=== PATIENT | female | born 2000 | race Two or more races ===

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

== ENCOUNTER 2018-01-22 19:17 | Inpatient (IN) | payer MEDICAID, OTHER ==
[~2018-01-22] VITALS: Ht 175.3 cm; Wt 46.1 kg
[2018-01-22] MEDS ORDERED: SODIUM CHLORIDE 0.9% 1,000ML IVBOLUS ONE (19:30)
[2018-01-22 19:49] LABS: BASOPHILS # (AUTO) 0.04 x10^3/uL (0-0.3); BASOPHILS % (AUTO) 1 % (0-1); EOSINOPHILS # (AUTO) 0.29 x10^3/uL (0-0.8); EOSINOPHILS % (AUTO) 5 % (1-7); LYMPHOCYTES # (AUTO) 1.94 x10^3/uL (1-6.1); LYMPHOCYTES % (AUTO) 36 % (22-44); MD NO; MEAN CORPUSCULAR HEMOGLOBIN 32.3 pg (27.0-34.8); MEAN CORPUSCULAR HGB CONC 33.8 g/dL (32.4-35.8); MEAN CORPUSCULAR VOLUME 95.5 fL (80-100); MONOCYTES # (AUTO) 0.41 x10^3/uL (0-1.4); MONOCYTES % (AUTO) 8 % (2-9); NEUTROPHILS # (AUTO) 2.65 x10^3/uL (1.8-8.0); NEUTROPHILS % (AUTO) 50 % (42-75); PLATELET COUNT 224 x10^3/uL (130-400); RED BLOOD COUNT 4.37 x10^6/uL (3.82-5.3); RED CELL DISTRIBUTION WIDTH 14.4 % (9.6-15.2)
[2018-01-22 20:02] LABS: ALBUMIN 4.2 g/dL (3.4-5.0); ANION GAP 8 mmol/L (5-15); CALCIUM 8.7 mg/dL (8.5-10.1); CHLORIDE 111 mmol/L (98-107)
[2018-01-22 20:06] LABS: ACETAMINOPHEN 76 mcg/mL (10-30); ALANINE AMINOTRANSFERASE 24 U/L (12-78); ALKALINE PHOSPHATASE 66 U/L (45-117); BILIRUBIN,TOTAL 0.6 mg/dL (0.2-1.0); CREATININE 0.73 mg/dL (0.55-1.02); SALICYLATE LEVEL 3.7 mg/dL (2.8-20.0); TOTAL PROTEIN 7.5 g/dL (6.4-8.2)
[2018-01-22] MEDS ORDERED: ACET-1600 PO (20:27)
[2018-01-22 20:53] LABS: MICROSCOPIC NOT IND
[2018-01-22 20:56] LABS: CULTURE INDICATED? NO
[2018-01-22 21:04] LABS: AMPHETAMINE SCREEN, URINE Negative (Negative); BARBITURATE SCREEN, URINE Negative (Negative); BENZODIAZEPINE SCREEN, URINE Negative (Negative); CANNABINOID SCREEN, URINE Positive (Negative); COCAINE SCREEN, URINE Negative (Negative); METHADONE SCREEN, URINE Negative (Negative); OPIATE SCREEN, URINE Negative (Negative)
[2018-01-22] MEDS ORDERED: ACETYLCYSTEINE IV ONE (22:00)
[2018-01-22] MEDS ORDERED: DEXTROSE 5% IV ONE (22:00)
[2018-01-22] MEDS ORDERED: METOCLOPRAMIDE 5 MG/ML, 2ML IVPush ONE (22:30)
[2018-01-22 22:34] LABS: INTERNATIONAL NORMALIZED RATIO 1.08 (0.93-1.1); PROTHROMBIN TIME 11.1 Seconds (9.6-11.5)
[2018-01-22] MEDS ORDERED: SODIUM CHLORIDE 0.9% 1,000 ML IV ONE (23:16)
[2018-01-22] MEDS ORDERED: MORPHINE SULFATE 4 MG/ML, 1ML IVPush PRN (23:30)
[2018-01-22] MEDS ORDERED: ONDANSETRON 2MG/ML, 2ML IVPush PRN (23:30)
[2018-01-22] MEDS ORDERED: MORPHINE SULFATE 4 MG/ML, 1ML ONE (23:31)
[2018-01-22] MEDS ORDERED: SODIUM CHLORIDE 0.9% 1,000 ML IV SCH (23:53)
[2018-01-23] MEDS ORDERED: ONDANSETRON 2MG/ML, 2ML IVPush PRN
[2018-01-23] MEDS ORDERED: METOCLOPRAMIDE 5 MG/ML, 2ML IVPush PRN
[2018-01-23 00:42] VITALS: BP 125/85
[2018-01-23] MEDS ORDERED: PROCHLORPERAZINE 5 MG/ML, 2ML IVPush PRN (01:30)
[2018-01-23 01:53] VITALS: BP 128/83
[2018-01-23] MEDS ORDERED: ACETYLCYSTEINE IV ONE ×2 (04:30)
[2018-01-23] MEDS ORDERED: DEXTROSE 5% IV ONE ×2 (04:30)
[2018-01-23 05:32] LABS: CHLORIDE 110 mmol/L (98-107)
[2018-01-23 05:43] LABS: BASOPHILS # (AUTO) 0.02 x10^3/uL (0-0.3); BASOPHILS % (AUTO) 0 % (0-1); EOSINOPHILS % (AUTO) 0 % (1-7); LYMPHOCYTES # (AUTO) 0.62 x10^3/uL (1-6.1); LYMPHOCYTES % (AUTO) 7 % (22-44); MD NO; MEAN CORPUSCULAR HEMOGLOBIN 32.3 pg (27.0-34.8); MEAN CORPUSCULAR HGB CONC 33.9 g/dL (32.4-35.8); MEAN CORPUSCULAR VOLUME 95.3 fL (80-100); MEAN PLATELET VOLUME 8.8 fL (7.4-10.4); MONOCYTES % (AUTO) 3 % (2-9); NEUTROPHILS # (AUTO) 8.58 x10^3/uL (1.8-8.0); NEUTROPHILS % (AUTO) 90 % (42-75); PLATELET COUNT 205 x10^3/uL (130-400); RED BLOOD COUNT 4.07 x10^6/uL (3.82-5.3)
[2018-01-23 05:48] LABS: ACETAMINOPHEN < 2 mcg/mL (10-30); ALANINE AMINOTRANSFERASE 27 U/L (12-78); ALBUMIN 3.8 g/dL (3.4-5.0); ALKALINE PHOSPHATASE 56 U/L (45-117); ANION GAP 12 mmol/L (5-15); BILIRUBIN,TOTAL 0.9 mg/dL (0.2-1.0); CALCIUM 8.2 mg/dL (8.5-10.1); CREATININE 0.53 mg/dL (0.55-1.02); TOTAL PROTEIN 6.9 g/dL (6.4-8.2)
[2018-01-23 07:51] VITALS: BP 99/60
== END 2018-01-23 10:37 | disposition left against medical advice (07) | DRG 918 ==
LOC: ED 21:12 → EDIP 23:16 → 4NOR 01-23 00:30 → UNDODISIN 01-23 10:34
PROVIDERS: ADMIT Hospitalist; ATTEND Hospitalist
DX: T39.1X1A Poisoning by 4-Aminophenol derivatives, accidental (unintentional), initial encounter (principal); F20.9 Schizophrenia, unspecified; R17 Unspecified jaundice; J45.909 Unspecified asthma, uncomplicated; F31.9 Bipolar disorder, unspecified; F12.90 Cannabis use, unspecified, uncomplicated; Z53.21 Procedure and treatment not carried out due to patient leaving prior to being seen by health care provider; Z88.8 Allergy status to other drugs, medicaments and biological substances; Z88.0 Allergy status to penicillin; Y92.89 Other specified places as the place of occurrence of the external cause
CPT/HCPCS: 36415; 76700; 80053; 80307; 80329; 81003; 83690; 84703; 85025; 85610; 96361; 96365; 96366; 96375; J0132; J2405; J7060; J7070; G0480; J0780; J2765; J7030

== ENCOUNTER 2018-02-25 09:03 | Emergency (ER) | payer SELFPAY ==
[~2018-02-25] VITALS: Ht 172.7 cm; Wt 44.2 kg
[~2018-02-25 09:03] MED LIST changes: +ACET-1600 PO
[2018-02-25 09:52] LABS: BASOPHILS # (AUTO) 0.02 x10^3/uL (0-0.3); BASOPHILS % (AUTO) 0 % (0-1); EOSINOPHILS # (AUTO) 0.22 x10^3/uL (0-0.8); EOSINOPHILS % (AUTO) 5 % (1-7); LYMPHOCYTES # (AUTO) 1.17 x10^3/uL (1-6.1); LYMPHOCYTES % (AUTO) 25 % (22-44); MD NO; MEAN CORPUSCULAR HEMOGLOBIN 33.5 pg (27.0-34.8); MEAN CORPUSCULAR HGB CONC 34.7 g/dL (32.4-35.8); MEAN CORPUSCULAR VOLUME 96.7 fL (80-100); MEAN PLATELET VOLUME 8.6 fL (7.4-10.4); MONOCYTES # (AUTO) 0.33 x10^3/uL (0-1.4); MONOCYTES % (AUTO) 7 % (2-9); NEUTROPHILS # (AUTO) 2.89 x10^3/uL (1.8-8.0); NEUTROPHILS % (AUTO) 63 % (42-75); PLATELET COUNT 213 x10^3/uL (130-400); RED BLOOD COUNT 4.24 x10^6/uL (3.82-5.3); RED CELL DISTRIBUTION WIDTH 13.1 % (9.6-15.2)
[2018-02-25] MEDS ORDERED: ONDANSETRON ODT 4 MG PO ONE (10:00)
[2018-02-25 10:04] LABS: ANION GAP 8 mmol/L (5-15); CALCIUM 8.6 mg/dL (8.5-10.1); CHLORIDE 112 mmol/L (98-107)
[2018-02-25 10:09] LABS: ALANINE AMINOTRANSFERASE 25 U/L (12-78); ALKALINE PHOSPHATASE 68 U/L (45-117); BILIRUBIN,TOTAL 1.3 mg/dL (0.2-1.0); CREATININE 0.74 mg/dL (0.55-1.02); TOTAL PROTEIN 7.2 g/dL (6.4-8.2)
[2018-02-25] MEDS ORDERED: ONDANSETRON ODT 4 MG ONE (10:36)
[2018-02-25 10:40] VITALS: BP 115/79
== END 2018-02-25 11:47 | disposition home or self-care (01) ==
LOC: ED 10:14
DX: O26.891 Other specified pregnancy related conditions, first trimester (principal); R10.33 Periumbilical pain; G40.909 Epilepsy, unspecified, not intractable, without status epilepticus; F31.9 Bipolar disorder, unspecified; F41.9 Anxiety disorder, unspecified
CPT/HCPCS: 36415; 76801; 80053; 83690; 84702; 84703; 85025; 99285; Q0162

== ENCOUNTER 2018-03-16 10:21 | Emergency (ER) | payer SELFPAY ==
[~2018-03-16] VITALS: Ht 172.7 cm; Wt 43.0 kg
[2018-03-16] MEDS ORDERED: ONDANSETRON ODT 4 MG PO ONE (11:00)
[2018-03-16 11:17] LABS: BASOPHILS # (AUTO) 0.04 x10^3/uL (0-0.3); BASOPHILS % (AUTO) 1 % (0-1); EOSINOPHILS # (AUTO) 0.22 x10^3/uL (0-0.8); EOSINOPHILS % (AUTO) 5 % (1-7); LYMPHOCYTES # (AUTO) 1.34 x10^3/uL (1-6.1); LYMPHOCYTES % (AUTO) 28 % (22-44); MD NO; MEAN CORPUSCULAR HEMOGLOBIN 32.6 pg (27.0-34.8); MEAN CORPUSCULAR HGB CONC 34.1 g/dL (32.4-35.8); MEAN CORPUSCULAR VOLUME 95.7 fL (80-100); MEAN PLATELET VOLUME 8.4 fL (7.4-10.4); MONOCYTES # (AUTO) 0.34 x10^3/uL (0-1.4); MONOCYTES % (AUTO) 7 % (2-9); NEUTROPHILS # (AUTO) 2.81 x10^3/uL (1.8-8.0); NEUTROPHILS % (AUTO) 59 % (42-75); PLATELET COUNT 244 x10^3/uL (130-400); RED BLOOD COUNT 4.23 x10^6/uL (3.82-5.3); RED CELL DISTRIBUTION WIDTH 13.2 % (9.6-15.2)
[2018-03-16 11:29] LABS: ALANINE AMINOTRANSFERASE 47 U/L (12-78); ALBUMIN 3.8 g/dL (3.4-5.0); ANION GAP 8 mmol/L (5-15); CALCIUM 8.7 mg/dL (8.5-10.1); CHLORIDE 110 mmol/L (98-107); CREATININE 0.64 mg/dL (0.55-1.02)
[2018-03-16 11:45] LABS: ALKALINE PHOSPHATASE 70 U/L (45-117); BILIRUBIN,TOTAL 0.8 mg/dL (0.2-1.0); TOTAL PROTEIN 7.3 g/dL (6.4-8.2)
[2018-03-16] MEDS ORDERED: PREN1TAB60 PO (12:40)
[2018-03-16] MEDS ORDERED: ONDANSETRON ODT 4 MG ONE (13:02)
[2018-03-16 13:08] VITALS: BP 122/82
== END 2018-03-16 13:38 | disposition home or self-care (01) ==
LOC: ED 13:32
DX: O26.891 Other specified pregnancy related conditions, first trimester (principal); O99.341 Other mental disorders complicating pregnancy, first trimester; Z3A.08 8 weeks gestation of pregnancy; F31.9 Bipolar disorder, unspecified; F41.9 Anxiety disorder, unspecified
CPT/HCPCS: 36415; 76801; 80053; 84702; 85025; 86901; 99285; Q0162

== ENCOUNTER 2018-11-13 11:04 | Emergency (ER) | payer SELFPAY ==
[~2018-11-13] VITALS: Ht 170.2 cm; Wt 50.0 kg
[~2018-11-13 11:04] MED LIST changes: +PREN1TAB60 PO
[2018-11-13] MEDS ORDERED: ONDANSETRON ODT 4 MG ONE (11:29)
[2018-11-13] MEDS ORDERED: SODIUM CHLORIDE FLUSH 10ML SYR IVF ONE (11:30)
[2018-11-13] MEDS ORDERED: ONDANSETRON ODT 4 MG PO ONE (11:30)
[2018-11-13 11:46] LABS: BASOPHILS # (AUTO) 0.02 x10^3/uL (0-0.3); BASOPHILS % (AUTO) 0 % (0-1); EOSINOPHILS % (AUTO) 3 % (1-7); LYMPHOCYTES # (AUTO) 0.48 x10^3/uL (1-6.1); LYMPHOCYTES % (AUTO) 8 % (22-44); MD NO; MEAN CORPUSCULAR HEMOGLOBIN 33.9 pg (27.0-34.8); MEAN CORPUSCULAR HGB CONC 34.4 g/dL (32.4-35.8); MEAN CORPUSCULAR VOLUME 98.5 fL (80-100); MEAN PLATELET VOLUME 7.7 fL (7.4-10.4); MONOCYTES # (AUTO) 0.29 x10^3/uL (0-1.4); MONOCYTES % (AUTO) 5 % (2-9); NEUTROPHILS # (AUTO) 5.39 x10^3/uL (1.8-8.0); NEUTROPHILS % (AUTO) 85 % (42-75); PLATELET COUNT 318 x10^3/uL (130-400); RED CELL DISTRIBUTION WIDTH 12.7 % (9.6-15.2)
[2018-11-13 11:54] LABS: ALBUMIN 2.8 g/dL (3.4-5.0); ANION GAP 7 mmol/L (5-15); CALCIUM 9.5 mg/dL (8.5-10.1); CHLORIDE 114 mmol/L (98-107)
[2018-11-13 11:58] LABS: ALANINE AMINOTRANSFERASE 28 U/L (12-78); ALKALINE PHOSPHATASE 204 U/L (45-117); BILIRUBIN,TOTAL 0.5 mg/dL (0.2-1.0); CREATININE 0.62 mg/dL (0.55-1.02); TOTAL PROTEIN 7.6 g/dL (6.4-8.2)
[2018-11-13] MEDS ORDERED: OMNIPAQUE 350 MG/ML, 100ML BOTTLE ONE (12:28)
--- NOTE | 2018-11-13 12:51 | NUR ---
LUNCH BREAK NOTE: PT RESTING IN [facility] IN [facility]. UA COLLECTED AND SENT TO THE LAB.
[2018-11-13 13:04] LABS: MICROSCOPIC NOT IND
[2018-11-13 13:11] LABS: CULTURE INDICATED? NO
[2018-11-13 13:45] VITALS: BP 106/64
== END 2018-11-13 13:56 | disposition home or self-care (01) ==
LOC: ED 12:56
DX: O90.89 Other complications of the puerperium, not elsewhere classified (principal); R10.9 Unspecified abdominal pain; J45.909 Unspecified asthma, uncomplicated; F31.9 Bipolar disorder, unspecified; Z88.1 Allergy status to other antibiotic agents; Z88.0 Allergy status to penicillin
CPT/HCPCS: 36415; 74177; 80053; 81003; 83690; 85025; 99284; Q0162; Q9967

== ENCOUNTER 2019-09-05 16:42 | Emergency (ER) | payer MEDICAID ==
[~2019-09-05] VITALS: Ht 172.7 cm; Wt 46.2 kg
[2019-09-05 17:17] VITALS: BP 128/77
[2019-09-05] MEDS ORDERED: BUPIVACAINE/PF 0.5% ONE (17:53)
[2019-09-05] MEDS ORDERED: LIDOCAINE-MPF 1%, 5ML ONE (17:53)
[2019-09-05] MEDS ORDERED: LIDOCAINE 1%, 10ML INFIL ONE (18:00)
[2019-09-05] MEDS ORDERED: BUPIVACAINE 0.25% INFIL ONE (18:00)
--- NOTE | 2019-09-05 18:04 | NUR ---
DC EDUCATION PROVIDED, PT DEMONSTRATES UNDERSTANDING. PT AMBULATED STEADILY TO DC WITH RN AND FAMILY. FAMILY TO TRANSPORT PT HOME.
== END 2019-09-05 18:14 | disposition home or self-care (01) ==
LOC: ED 18:05
DX: K02.9 Dental caries, unspecified (principal); K08.89 Other specified disorders of teeth and supporting structures; F17.210 Nicotine dependence, cigarettes, uncomplicated; F11.10 Opioid abuse, uncomplicated; Z72.9 Problem related to lifestyle, unspecified
CPT/HCPCS: 64402; 99284

== ENCOUNTER 2019-12-26 13:46 | Emergency (ER) | payer MEDICAID ==
[~2019-12-26] VITALS: Ht 172.7 cm; Wt 54.6 kg
[2019-12-26 13:55] VITALS: BP 115/78
[2019-12-26 14:40] LABS: BASOPHILS # (AUTO) 0.03 x10^3/uL (0-0.1); BASOPHILS % (AUTO) 1 % (0-1); EOSINOPHILS # (AUTO) 0.14 x10^3/uL (0-0.4); EOSINOPHILS % (AUTO) 3 % (1-7); LYMPHOCYTES # (AUTO) 1.61 x10^3/uL (1-3.4); LYMPHOCYTES % (AUTO) 30 % (22-44); MD NO; MEAN CORPUSCULAR HEMOGLOBIN 32.2 pg (27.0-34.8); MEAN CORPUSCULAR HGB CONC 33.9 g/dL (32.4-35.8); MONOCYTES # (AUTO) 0.42 x10^3/uL (0.2-0.8); MONOCYTES % (AUTO) 8 % (2-9); NEUTROPHILS # (AUTO) 3.21 x10^3/uL (1.8-6.8); NEUTROPHILS % (AUTO) 59 % (42-75); PLATELET COUNT 271 x10^3/uL (130-400); RED BLOOD COUNT 4.37 x10^6/uL (3.82-5.3); RED CELL DISTRIBUTION WIDTH 13.3 % (9.6-15.2)
--- NOTE | 2019-12-26 15:20 | NUR ---
PT HAS CO ABDOMINAL PAIN SINCE LAST NIGHT. BOTH LOWER QUADRENTS AND RADIATES TO RECTUM AT TIMES. DENIES N/V/D. DENIES PAIN OR TROUBLE VOIDING. NO SOB OR CP. UA CUP GIVEN.
[2019-12-26 15:49] LABS: ALANINE AMINOTRANSFERASE 26 U/L (12-78); ALBUMIN 3.9 g/dL (3.4-5.0); ANION GAP 8 mmol/L (5-15); CALCIUM 8.8 mg/dL (8.5-10.1); CHLORIDE 109 mmol/L (98-107); CREATININE 0.75 mg/dL (0.55-1.02)
[2019-12-26 15:51] LABS: ALKALINE PHOSPHATASE 103 U/L (45-117); BILIRUBIN,TOTAL 0.7 mg/dL (0.2-1.0); TOTAL PROTEIN 7.7 g/dL (6.4-8.2)
--- NOTE | 2019-12-26 15:54 | NUR ---
UA SENT. PT IN IMAGING
[2019-12-26 16:15] LABS: MICROSCOPIC INDICATED
[2019-12-26 16:24] LABS: CULTURE INDICATED? YES
--- NOTE | 2019-12-26 17:14 | NUR ---
Patient/Caregiver given discharge instructions and they have confirmed that they understand the instructions. Patient ambulatory with steady gait.
== END 2019-12-26 17:25 | disposition home or self-care (01) ==
LOC: ED 17:15
DX: R10.84 Generalized abdominal pain (principal); R10.30 Lower abdominal pain, unspecified; R11.0 Nausea; J45.909 Unspecified asthma, uncomplicated; G40.909 Epilepsy, unspecified, not intractable, without status epilepticus; Z88.0 Allergy status to penicillin; Z88.9 Allergy status to unspecified drugs, medicaments and biological substances
CPT/HCPCS: 36415; 76830; 80053; 81001; 83690; 84703; 85025; 87077; 87086; 87186; 99284

== ENCOUNTER 2020-03-01 09:21 | Emergency (ER) | payer MEDICAID ==
[~2020-03-01] VITALS: Ht 172.7 cm; Wt 51.7 kg
[2020-03-01] MEDS ORDERED: FLUO10CA13 PO (09:48)
[2020-03-01] MEDS ORDERED: HYDR-2995 PO (09:48)
[2020-03-01] MEDS ORDERED: PROP10TA51 PO (09:48)
[2020-03-01] MEDS ORDERED: TRAZ-175 PO (09:48)
[2020-03-01] MEDS ORDERED: MAALOX/HYOSCYAMINE/LIDOCAINE 45 ML BTL ONE (09:52)
[2020-03-01] MEDS ORDERED: FAMOTIDINE 20 MG/2 ML ONE (09:52)
[2020-03-01] MEDS ORDERED: ONDANSETRON 2MG/ML, 2ML ONE (09:56)
[2020-03-01] MEDS ORDERED: MAALOX/HYOSCYAMINE/LIDOCAINE 45 ML BTL PO ONE (10:00)
[2020-03-01] MEDS ORDERED: FAMOTIDINE 20 MG/2 ML IV ONE (10:00)
[2020-03-01] MEDS ORDERED: SODIUM CHLORIDE FLUSH 10ML SYR IVF ONE (10:00)
[2020-03-01] MEDS ORDERED: ONDANSETRON 2MG/ML, 2ML IVPush ONE (10:00)
[2020-03-01 10:20] LABS: BASOPHILS # (AUTO) 0.03 x10^3/uL (0-0.1); BASOPHILS % (AUTO) 1 % (0-1); EOSINOPHILS # (AUTO) 0.25 x10^3/uL (0-0.4); EOSINOPHILS % (AUTO) 5 % (1-7); LYMPHOCYTES # (AUTO) 1.43 x10^3/uL (1-3.4); LYMPHOCYTES % (AUTO) 30 % (22-44); MD NO; MEAN CORPUSCULAR HEMOGLOBIN 32.4 pg (27.0-34.8); MEAN CORPUSCULAR HGB CONC 33.5 g/dL (32.4-35.8); MEAN CORPUSCULAR VOLUME 96.8 fL (80-100); MEAN PLATELET VOLUME 8.3 fL (7.4-10.4); MONOCYTES # (AUTO) 0.42 x10^3/uL (0.2-0.8); MONOCYTES % (AUTO) 9 % (2-9); NEUTROPHILS # (AUTO) 2.69 x10^3/uL (1.8-6.8); NEUTROPHILS % (AUTO) 56 % (42-75); PLATELET COUNT 262 x10^3/uL (130-400); RED BLOOD COUNT 4.34 x10^6/uL (3.82-5.3); RED CELL DISTRIBUTION WIDTH 13.9 % (9.6-15.2)
[2020-03-01 10:22] LABS: MICROSCOPIC NOT IND
[2020-03-01 10:29] LABS: CHLORIDE 110 mmol/L (98-107)
[2020-03-01 10:30] LABS: CULTURE INDICATED? NO
[2020-03-01 10:33] LABS: ALANINE AMINOTRANSFERASE 50 U/L (12-78); ANION GAP 4 mmol/L (5-15); CREATININE 0.72 mg/dL (0.55-1.02)
[2020-03-01 10:36] LABS: ALKALINE PHOSPHATASE 138 U/L (45-117); BILIRUBIN,TOTAL 0.8 mg/dL (0.2-1.0); TOTAL PROTEIN 7.9 g/dL (6.4-8.2)
[2020-03-01 10:37] VITALS: BP 103/54
== END 2020-03-01 11:20 | disposition home or self-care (01) ==
LOC: ED 09:47
DX: K80.50 Calculus of bile duct without cholangitis or cholecystitis without obstruction (principal); K80.20 Calculus of gallbladder without cholecystitis without obstruction; R10.13 Epigastric pain; R10.11 Right upper quadrant pain; R94.31 Abnormal electrocardiogram [ECG] [EKG]; J45.909 Unspecified asthma, uncomplicated; Z87.891 Personal history of nicotine dependence
CPT/HCPCS: 36415; 76700; 80053; 81003; 83690; 84703; 85025; 93005; 96374; 96375; 99285; J2405; J3490

== ENCOUNTER 2020-03-09 16:30 | Day surgery (SDC) | payer MEDICAID ==
[~2020-03-09] VITALS: Ht 172.7 cm; Wt 51.3 kg
[~2020-03-09 16:30] MED LIST changes: +FLUO10CA13 PO; +FLUO20TA25 PO; +HYDR-2995 PO; +HYDR50TA99 PO; +PROP10TA51 PO; +PROPRANOL PO; +TRAZ-175 PO; +TRAZ50TA66 PO; +[UNRECOGNIZED DRUG - OTHER] PO; +olanzapine PO
[2020-03-09] MEDS ORDERED: CHLORHEXIDINE 15 ML UDC MM STA (16:43)
[2020-03-09] MEDS ORDERED: LACTATED RINGERS 1,000 ML IV ONE (16:43)
[2020-03-09] MEDS ORDERED: CHLORHEXIDINE 15 ML UDC ONE (16:45)
[2020-03-09 17:05] LABS: HCG UR SG 1.032 (1.003-1.030)
[2020-03-09 17:31] LABS: ALANINE AMINOTRANSFERASE 47 U/L (12-78); ANION GAP 8 mmol/L (5-15); CALCIUM 9.1 mg/dL (8.5-10.1); CHLORIDE 110 mmol/L (98-107); CREATININE 0.69 mg/dL (0.55-1.02)
[2020-03-09 17:34] LABS: ALKALINE PHOSPHATASE 141 U/L (45-117); BILIRUBIN,TOTAL 0.7 mg/dL (0.2-1.0)
[2020-03-09] MEDS ORDERED: FENTANYL PF 100 MCG/2ML ONE ×2 (17:48→20:13)
[2020-03-09] MEDS ORDERED: MIDAZOLAM 1 MG/ML, 2ML ONE (17:48)
[2020-03-09] MEDS ORDERED: BUPIVACAINE/PF-EPI 0.5% 1:200K ONE (18:23)
[2020-03-09] MEDS ORDERED: PROMETHAZINE 25 MG/ML, 1ML IVPush PRN (18:30)
[2020-03-09] MEDS ORDERED: LABETALOL 5MG/ML, 20ML IV PRN (18:30)
[2020-03-09] MEDS ORDERED: ALBUTEROL SULFATE 2.5 MG/3 ML NPPB PRN (18:30)
[2020-03-09] MEDS ORDERED: OXYcodone 5 MG/5 ML ORAL.SOL UDC PO PRN (18:30)
[2020-03-09] MEDS ORDERED: MIDAZOLAM 1 MG/ML, 2ML IV PRN (18:30)
[2020-03-09] MEDS ORDERED: MEPERIDINE/PF 25MG/0.5ML IVPush PRN (18:30)
[2020-03-09] MEDS ORDERED: ACETAMINOPHEN 325 MG TABLET PO PRN (18:30)
[2020-03-09] MEDS ORDERED: DIPHENHYDRAMINE 50 MG/ML, 1ML IVPush PRN (18:30)
[2020-03-09] MEDS ORDERED: SUGAMMADEX 200 MG/2 ML IVPush ONE (19:04)
[2020-03-09] MEDS ORDERED: CEFOTETAN 1 GM ONE (19:04)
[2020-03-09] MEDS ORDERED: KETOROLAC 30 MG/1 ML ONE (19:04)
[2020-03-09] MEDS ORDERED: SUCCINYLCHOLINE 20 MG/ML, 10ML ONE (19:44)
[2020-03-09] MEDS ORDERED: DEXAMETHASONE 4 MG/ML, 1ML ONE (19:44)
[2020-03-09] MEDS ORDERED: ROCURONIUM 10MG/ML,5ML ONE (19:44)
[2020-03-09] MEDS ORDERED: CEFAZOLIN 1,000 MG ONE (19:44)
[2020-03-09] MEDS ORDERED: GLYCOPYRROLATE 0.2MG/1ML, 5ML ONE (19:44)
[2020-03-09] MEDS ORDERED: LIDOCAINE-MPF 2% ,5ML ONE (19:44)
[2020-03-09] MEDS ORDERED: NEOSTIGMINE 1 MG/ML, 10ML ONE (19:44)
[2020-03-09] MEDS ORDERED: PROPOFOL 10 MG/ML, 20ML ONE (19:44)
[2020-03-09] MEDS ORDERED: ONDANSETRON 2MG/ML, 2ML ONE ×2 (19:44→20:09)
[2020-03-09] MEDS ORDERED: LACTATED RINGERS 1,000 ML IV SCH (20:01)
[2020-03-09] MEDS: FENTANYL PF 100 MCG/2ML IV PRN ×2 (20:10→20:21)
[2020-03-09] MEDS ORDERED: OXYcodone 5 MG/5 ML ORAL.SOL UDC ONE (20:13)
[2020-03-09] MEDS ORDERED: LORazepam 2 MG/ML, 1ML ONE (20:13)
[2020-03-09] MEDS: HYDROmorphone 1 MG/ML, 1ML INJ IVPush PRN ×3 (20:25→20:50)
[2020-03-09] MEDS ORDERED: HYDROmorphone 1 MG/ML, 1ML INJ ONE (20:28)
[2020-03-09] MEDS ORDERED: ONDANSETRON 2MG/ML, 2ML IVPush PRN (20:30)
[2020-03-09] MEDS ORDERED: PROMETHAZINE 25 MG/ML, 1ML IM PRN (20:30)
[2020-03-09] MEDS ORDERED: LORazepam 2 MG/ML, 1ML IVPush PRN (20:30)
[2020-03-09 21:19] VITALS: BP 112/77
[2020-03-09] MEDS ORDERED: ONDA4TAB7 PO (21:50)
[2020-03-09] MEDS ORDERED: OXYC-306 PO (21:50)
[2020-03-09] MEDS ORDERED: MORPHINE SULFATE 4 MG/ML, 1ML ONE ×2 (22:31→22:57)
[2020-03-09] MEDS: morphine SULFATE 10 MG/ML, 1ML IVPush PRN ×2 (22:33→22:59)
== END 2020-03-09 23:30 | disposition home or self-care (01) ==
LOC: OR 16:30 → 3WST 21:10 → OR 23:30
PROVIDERS: ATTEND Surgery
DX: K81.1 Chronic cholecystitis (principal); Z11.59 Encounter for screening for other viral diseases; K82.8 Other specified diseases of gallbladder; F32.9 Major depressive disorder, single episode, unspecified; J45.909 Unspecified asthma, uncomplicated; I10 Essential (primary) hypertension; Z79.891 Long term (current) use of opiate analgesic; Z79.899 Other long term (current) drug therapy; Z88.8 Allergy status to other drugs, medicaments and biological substances; Z83.3 Family history of diabetes mellitus
CPT/HCPCS: 36415; 47562; 80053; 81025; 88304; J0330; J0690; J1100; J1170; J1885; J2060; J2250; J2270; J2405; J2704; J2710; J3010; J3490; J7120; U0001; G0378

== ENCOUNTER 2020-03-30 08:03 | Emergency (ER) | payer MEDICAID ==
[~2020-03-30] VITALS: Ht 172.7 cm; Wt 53.9 kg
[~2020-03-30 08:03] MED LIST changes: +ONDA4TAB7 PO; +OXYC-306 PO
[2020-03-30] MEDS ORDERED: HYDROcodone/APAP 5/325 TABLET ONE (08:29)
[2020-03-30] MEDS ORDERED: HYDROcodone/APAP 5/325 TABLET PO ONE (08:30)
--- NOTE | 2020-03-30 08:34 | NUR ---
PT AMBULATED TO BR WITH STEADY GAIT. UA SAMPLE COLLECTED AND SENT TO LAB
[2020-03-30 08:46] LABS: BASOPHILS # (AUTO) 0.06 x10^3/uL (0-0.1); BASOPHILS % (AUTO) 1 % (0-1); EOSINOPHILS # (AUTO) 0.64 x10^3/uL (0-0.4); EOSINOPHILS % (AUTO) 10 % (1-7); HCG UR SG 1.022 (1.003-1.030); LYMPHOCYTES # (AUTO) 1.73 x10^3/uL (1-3.4); LYMPHOCYTES % (AUTO) 27 % (22-44); MD NO; MEAN CORPUSCULAR HEMOGLOBIN 31.9 pg (27.0-34.8); MEAN CORPUSCULAR HGB CONC 33.3 g/dL (32.4-35.8); MEAN CORPUSCULAR VOLUME 95.7 fL (80-100); MEAN PLATELET VOLUME 8.3 fL (7.4-10.4); MICROSCOPIC AUTO; MONOCYTES # (AUTO) 0.54 x10^3/uL (0.2-0.8); MONOCYTES % (AUTO) 8 % (2-9); NEUTROPHILS # (AUTO) 3.49 x10^3/uL (1.8-6.8); NEUTROPHILS % (AUTO) 54 % (42-75); PLATELET COUNT 292 x10^3/uL (130-400); RED BLOOD COUNT 3.98 x10^6/uL (3.82-5.3); RED CELL DISTRIBUTION WIDTH 13.4 % (9.6-15.2)
[2020-03-30 08:58] LABS: ALANINE AMINOTRANSFERASE 39 U/L (12-78); ALBUMIN 3.2 g/dL (3.4-5.0); ANION GAP 9 mmol/L (5-15); CALCIUM 8.9 mg/dL (8.5-10.1); CHLORIDE 115 mmol/L (98-107); CREATININE 0.77 mg/dL (0.55-1.02)
[2020-03-30 09:00] LABS: ALKALINE PHOSPHATASE 168 U/L (45-117); BILIRUBIN,TOTAL 0.2 mg/dL (0.2-1.0); TOTAL PROTEIN 6.7 g/dL (6.4-8.2)
--- NOTE | 2020-03-30 09:53 | NUR ---
PT RESTING ON GURNEY, APPEARS COMFORTABLE AT THIS TIME. AWAITING US, CLARAS
[2020-03-30 11:09] VITALS: BP 117/81
--- NOTE | 2020-03-30 11:10 | NUR ---
Task rn: with reassessment. Patient reports pain only slightly improved to 7/10 Reports nausea improved Vss on nibp/pox Updated on estimated poc
== END 2020-03-30 12:08 | disposition home or self-care (01) ==
LOC: ED 08:50
DX: R10.9 Unspecified abdominal pain (principal); R11.2 Nausea with vomiting, unspecified; R19.7 Diarrhea, unspecified; J45.909 Unspecified asthma, uncomplicated; Z87.891 Personal history of nicotine dependence; Z90.49 Acquired absence of other specified parts of digestive tract
CPT/HCPCS: 36415; 74021; 76700; 80053; 81001; 81025; 83690; 85025; 87086; 99285

== ENCOUNTER 2020-04-03 09:48 | Emergency (ER) | payer MEDICAID ==
[~2020-04-03] VITALS: Ht 172.7 cm; Wt 51.7 kg
--- NOTE | 2020-04-03 10:09 | NUR ---
EPIC AMBULATORY ANALYSTS BED MOVED IN TO PT'S ROOM. PT STATES POSSIBLE EXPOSURE TO MULTIPLE STD'S, INCLUDING HIV. PT HERE FOR EXAM AND STD CHECK. PT'S SISTER AT BEDSIDE. AWAITING ERMD ASSESSMENT.
[2020-04-03] MEDS ORDERED: AZITHROMYCIN 500 MG TABLET PO ONE (10:30)
[2020-04-03] MEDS ORDERED: CEFTRIAXONE 1,000 MG IM ONE (10:30)
[2020-04-03] MEDS ORDERED: KETOROLAC 30 MG/1 ML IM ONE (10:30)
--- NOTE | 2020-04-03 10:30 | NUR ---
ERPA-C AT BEDSIDE FOR PELVIC EXAM. SAMPLE COLLECTED, WALKED TO LAB. PT AWAITING U/S. PT AWARE OF POC. PT'S SISTER AT BEDSIDE. CONT TO MONITOR.
[2020-04-03] MEDS ORDERED: KETOROLAC 30 MG/1 ML ONE (10:39)
[2020-04-03] MEDS ORDERED: AZITHROMYCIN 250 MG TABLET ONE (10:39)
[2020-04-03] MEDS ORDERED: CEFTRIAXONE 1,000 MG ONE (10:39)
[2020-04-03 10:47] LABS: BASOPHILS # (AUTO) 0.04 x10^3/uL (0-0.1); BASOPHILS % (AUTO) 1 % (0-1); EOSINOPHILS # (AUTO) 0.42 x10^3/uL (0-0.4); EOSINOPHILS % (AUTO) 8 % (1-7); LYMPHOCYTES % (AUTO) 23 % (22-44); MD NO; MEAN CORPUSCULAR HEMOGLOBIN 32.1 pg (27.0-34.8); MEAN CORPUSCULAR HGB CONC 33.6 g/dL (32.4-35.8); MEAN CORPUSCULAR VOLUME 95.4 fL (80-100); MEAN PLATELET VOLUME 8.6 fL (7.4-10.4); MONOCYTES # (AUTO) 0.45 x10^3/uL (0.2-0.8); MONOCYTES % (AUTO) 8 % (2-9); NEUTROPHILS # (AUTO) 3.34 x10^3/uL (1.8-6.8); NEUTROPHILS % (AUTO) 60 % (42-75); PLATELET COUNT 265 x10^3/uL (130-400); RED BLOOD COUNT 4.16 x10^6/uL (3.82-5.3); RED CELL DISTRIBUTION WIDTH 13.5 % (9.6-15.2)
--- NOTE | 2020-04-03 10:48 | NUR ---
PT TO U/S. WILL MEDICATED WHEN PT RETURN FROM U/S.
[2020-04-03 10:55] LABS: CLUE CELLS PRESENT (NONE SEEN); WET PREP WBCS MODERATE (FEW)
[2020-04-03 10:57] LABS: MICROSCOPIC INDICATED
--- NOTE | 2020-04-03 11:42 | NUR ---
PT STATES PAIN DECREASED, MEDICATIONS EFFECIVE. ER PA-C AT BEDSIDE FOR REASSESMENT, PT TO ER D/C. WILL D/C WHEN PAPERWORK AVAILABLE.
--- NOTE | 2020-04-03 11:57 | NUR ---
PT D/C'D PER ORDERS. PT VERBALIZED UNDERSTANDING OF D/C ORDERS. PT HAS ALL OWN BELONGINGS UPON D/C.
[2020-04-03 11:59] VITALS: BP 141/76
== END 2020-04-03 12:01 | disposition home or self-care (01) ==
LOC: ED 11:30
DX: N76.0 Acute vaginitis (principal); R10.2 Pelvic and perineal pain; Z87.891 Personal history of nicotine dependence
CPT/HCPCS: 36415; 76830; 81001; 84703; 85025; 87086; 87210; 87491; 87591; 87808; 96372; 99284; J0696; J1885

== ENCOUNTER 2020-04-22 19:25 | Emergency (ER) | payer MEDICAID ==
[~2020-04-22] VITALS: Ht 172.7 cm; Wt 50.1 kg
[2020-04-22 19:31] VITALS: BP 121/82
[2020-04-22] MEDS ORDERED: LORazepam 2 MG/ML, 1ML ONE (19:58)
[2020-04-22] MEDS ORDERED: ONDANSETRON 2MG/ML, 2ML ONE (19:58)
[2020-04-22] MEDS ORDERED: LORazepam 2 MG/ML, 1ML IVPush ONE (20:00)
[2020-04-22] MEDS ORDERED: SODIUM CHLORIDE FLUSH 10ML SYR IVF ONE (20:00)
[2020-04-22] MEDS ORDERED: ONDANSETRON 2MG/ML, 2ML IVPush ONE (20:00)
[2020-04-22 20:17] LABS: HCG UR SG 1.036 (1.003-1.030)
[2020-04-22 20:18] LABS: MICROSCOPIC INDICATED
--- NOTE | 2020-04-22 20:33 | NUR ---
ALL RESULTS ARE BACK AT THIS TIME. CHART UP FOR RECHECK.
--- NOTE | 2020-04-22 20:41 | NUR ---
MD AT BEDSIDE TO UPDATE PT ON POC.
== END 2020-04-22 21:14 | disposition home or self-care (01) ==
LOC: ED 21:11
DX: F41.9 Anxiety disorder, unspecified (principal); R11.10 Vomiting, unspecified; R06.02 Shortness of breath; R94.31 Abnormal electrocardiogram [ECG] [EKG]; J45.909 Unspecified asthma, uncomplicated; Z90.49 Acquired absence of other specified parts of digestive tract; Z87.891 Personal history of nicotine dependence
CPT/HCPCS: 81001; 81025; 87086; 93005; 96374; 96375; 99284; J2060; J2405

== ENCOUNTER 2020-05-11 05:11 | Emergency (ER) | payer MEDICAID ==
[~2020-05-11] VITALS: Ht 172.7 cm; Wt 49.0 kg
--- NOTE | 2020-05-11 05:24 | NUR ---
PT STATES SHE CAME IN TODAY FOR SEVERE ABDOMINAL PAIN AND VOMITING. PT STATES SHE IS THROWING UP EVERY 20 MINUTES, STILL HAVING GAS AND BM. LAST PERIOD WAS FEBRUARY, TYPICALLY GETS ONE EVERY 3 MONTHS. STATES SHE HAD THIS PAIN BEFORE WITH HER LAST MISCARRIAGE. ALSO STATES SHE FEELS FLANK PAIN AND PRESSURE WHEN TRYING TO PEE. PT IS SITTING UP IN GURNEY, CRYING, GIVEN WARM BLANKETS FOR COMFORT. PT PLACED ON SPO2/BP MONITORING. WCTM. WAITING FOR MD [place]
--- NOTE | 2020-05-11 05:26 | NUR ---
UA WALKED TO LAB.
[2020-05-11] MEDS ORDERED: OXYcodone/APAP 5/325MG TABLET PO ONE (05:30)
[2020-05-11] MEDS ORDERED: ONDANSETRON ODT 8 MG PO ONE (05:30)
[2020-05-11 05:43] LABS: HCG UR SG 1.028 (1.003-1.030); MICROSCOPIC NOT IND
[2020-05-11] MEDS ORDERED: ONDANSETRON ODT 8 MG ONE (05:54)
[2020-05-11] MEDS ORDERED: OXYcodone/APAP 5/325MG TABLET ONE (05:54)
--- NOTE | 2020-05-11 05:57 | NUR ---
PT MEDICATED PER MAR FOR NAUSEA AND ABDOMINAL PAIN. NO CHANGES IN CONDITION AT THIS TIME. WCTM. NAD. WAITING FOR LAB RESULTS.
--- NOTE | 2020-05-11 06:26 | NUR ---
PT RESTING IN [facility], LAB AT BS, NAUSEA AND PAIN IS DECREASED ACCORDING TO PT, APPEARS MORE COMFORTABLE, GIVEN ADDITIONAL WARM BLANKETS. DENIES ADDITIONAL NEEDS AT THIS TIME. NAD. WCTM. WAITING FOR CBC/CMP RESULTS.
[2020-05-11 06:40] LABS: BASOPHILS # (AUTO) 0.03 x10^3/uL (0-0.1); BASOPHILS % (AUTO) 0 % (0-1); EOSINOPHILS # (AUTO) 0.21 x10^3/uL (0-0.4); EOSINOPHILS % (AUTO) 3 % (1-7); LYMPHOCYTES # (AUTO) 1.65 x10^3/uL (1-3.4); LYMPHOCYTES % (AUTO) 22 % (22-44); MD NO; MEAN CORPUSCULAR HGB CONC 32.3 g/dL (32.4-35.8); MEAN CORPUSCULAR VOLUME 96.1 fL (80-100); MEAN PLATELET VOLUME 8.9 fL (7.4-10.4); MONOCYTES # (AUTO) 0.49 x10^3/uL (0.2-0.8); MONOCYTES % (AUTO) 7 % (2-9); NEUTROPHILS # (AUTO) 5.09 x10^3/uL (1.8-6.8); NEUTROPHILS % (AUTO) 68 % (42-75); PLATELET COUNT 205 x10^3/uL (130-400); RED BLOOD COUNT 4.08 x10^6/uL (3.82-5.3)
[2020-05-11 06:50] LABS: ALANINE AMINOTRANSFERASE 19 U/L (12-78); ANION GAP 9 mmol/L (5-15); CALCIUM 9.1 mg/dL (8.5-10.1); CHLORIDE 113 mmol/L (98-107); CREATININE 0.76 mg/dL (0.55-1.02)
--- NOTE | 2020-05-11 06:53 | NUR ---
BEDSIDE REPORT TO THEA SEN. PT CARE TRANSFERRED AT THIS TIME.
[2020-05-11 06:54] LABS: ALKALINE PHOSPHATASE 102 U/L (45-117); BILIRUBIN,TOTAL 0.4 mg/dL (0.2-1.0); TOTAL PROTEIN 7.3 g/dL (6.4-8.2)
[2020-05-11] MEDS ORDERED: KETOROLAC 30 MG/1 ML IM ONE (07:30)
[2020-05-11] MEDS ORDERED: PROMETHAZINE 25 MG/ML, 1ML IM ONE (07:30)
[2020-05-11] MEDS ORDERED: PROMETHAZINE 25 MG/ML, 1ML ONE (07:33)
[2020-05-11] MEDS ORDERED: KETOROLAC 60 MG/2 ML ONE (07:33)
[2020-05-11 07:37] VITALS: BP 122/76
--- NOTE | 2020-05-11 07:44 | NUR ---
pt placed on pelvic bed, water mangle tender cart wheeled into room. went in to medicate pt per emar, pt stated she can not do shots. pt then stated she wants to self discharge. erp aware, has gone in to speak with pt.
== END 2020-05-11 08:05 | disposition home or self-care (01) ==
LOC: ED 06:02
DX: R10.32 Left lower quadrant pain (principal); R10.31 Right lower quadrant pain; R50.9 Fever, unspecified; R11.2 Nausea with vomiting, unspecified; R10.2 Pelvic and perineal pain; R30.9 Painful micturition, unspecified; F41.9 Anxiety disorder, unspecified; I10 Essential (primary) hypertension; Z90.49 Acquired absence of other specified parts of digestive tract
CPT/HCPCS: 36415; 80053; 81003; 81025; 84703; 85025; 99283; Q0162

== ENCOUNTER 2020-06-01 02:42 | Emergency (ER) | payer MEDICAID ==
[~2020-06-01] VITALS: Ht 172.7 cm; Wt 40.8 kg
[2020-06-01 02:46] VITALS: BP 121/70
== END 2020-06-01 04:29 ==
LOC: ED 03:42
DX: G89.11 Acute pain due to trauma (principal); M25.532 Pain in left wrist; I10 Essential (primary) hypertension; Z87.891 Personal history of nicotine dependence; W18.30XA Fall on same level, unspecified, initial encounter; Y93.89 Activity, other specified; Y92.89 Other specified places as the place of occurrence of the external cause; Y99.8 Other external cause status
CPT/HCPCS: 29125; 99283

== ENCOUNTER 2020-06-21 19:37 | Emergency (ER) | payer MEDICAID ==
[~2020-06-21] VITALS: Ht 172.7 cm; Wt 46.0 kg
--- NOTE | 2020-06-21 19:55 | NUR ---
THIS IS A 20Y F BIB EMS FROM HOME FOR SZ. EMS STS SHE HAD 3-4 SZ EN ROUTE TO ER. 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 PT HAS HX OF SZ AND HAS NOT HAD MEDICATIONS FOR THIS IN ABOUT [address] IN [address] CONFECTIONERY MAKER AND PT A/O 4 UPON ARRIVAL. PT CONNECTED TO ALL MONITORING VSS, NADN, SZ PRECAUTIONS IN PLACE.
[2020-06-21] MEDS ORDERED: LORazepam 2 MG/ML, 1ML IVPush ONE ×3 (20:30→23:00)
[2020-06-21] MEDS ORDERED: LEVETIRACETAM 1,000 MG in SODIUM CHLORIDE 0.9% 100 ML IV ONE (20:30)
[2020-06-21] MEDS ORDERED: LORazepam 2 MG/ML, 1ML ONE ×2 (20:32→22:14)
[2020-06-21 20:34] VITALS: BP 102/70
--- NOTE | 2020-06-21 20:49 | NUR ---
PT MEDICATED PER DEC 21 RIGHTS VERIFIED. PT TOLERATING WELL NADN
[2020-06-21 21:25] LABS: BASOPHILS # (AUTO) 0.04 x10^3/uL (0-0.1); BASOPHILS % (AUTO) 1 % (0-1); EOSINOPHILS % (AUTO) 4 % (1-7); LYMPHOCYTES # (AUTO) 1.02 x10^3/uL (1-3.4); LYMPHOCYTES % (AUTO) 19 % (22-44); MD NO; MEAN CORPUSCULAR HGB CONC 32.9 g/dL (32.4-35.8); MEAN CORPUSCULAR VOLUME 94.2 fL (80-100); MEAN PLATELET VOLUME 9.3 fL (7.4-10.4); MONOCYTES # (AUTO) 0.35 x10^3/uL (0.2-0.8); MONOCYTES % (AUTO) 6 % (2-9); NEUTROPHILS # (AUTO) 3.78 x10^3/uL (1.8-6.8); NEUTROPHILS % (AUTO) 70 % (42-75); PLATELET COUNT 211 x10^3/uL (130-400); RED BLOOD COUNT 4.13 x10^6/uL (3.82-5.3); RED CELL DISTRIBUTION WIDTH 14.1 % (9.6-15.2)
[2020-06-21 21:37] LABS: ALBUMIN 3.7 g/dL (3.4-5.0); ANION GAP 5 mmol/L (5-15); CALCIUM 9.2 mg/dL (8.5-10.1); CHLORIDE 113 mmol/L (98-107)
--- NOTE | 2020-06-21 21:47 | NUR ---
PT RESTING ON [facility] BAJWA
--- NOTE | 2020-06-21 22:18 | NUR ---
PT HAD ANOTHER SZ LASTING APPROX 2 MINS MAINTAINED AIRWAY THROUGHOUT, PT DOES NOT RECALL EVENTS AT THIS TIME
--- NOTE | 2020-06-21 22:54 | NUR ---
PT HAD ANOTHER SZ LASTING APPROX 2.5 MINS. PT NOW AWAKE AND ASKING QUESTIONS DOES NOT RECALL EVENTS.
--- NOTE | 2020-06-21 23:31 | NUR ---
PT INSISTING UPON LEAVING TONIGHT AND THAT SHE HAS TO GET HOME TO CARE FOR HER CHILDREN. PT EDUCATED ON RISKS OF LEAVING AMA, STS SHE UNDERSTANDS RISKS UP TO AND INCLUDING . PIV DC PRIOR TO PT LEAVING
== END 2020-06-21 23:27 | disposition left against medical advice (07) ==
LOC: ED 22:28
DX: R56.9 Unspecified convulsions (principal); R55 Syncope and collapse; I10 Essential (primary) hypertension; Z72.9 Problem related to lifestyle, unspecified
CPT/HCPCS: 36415; 80048; 82040; 84703; 85025; 93005; 96365; 96375; 96376; 99284; J1953; J2060

== ENCOUNTER 2020-07-06 02:49 | Emergency (ER) | payer MEDICAID ==
[~2020-07-06] VITALS: Ht 172.7 cm; Wt 47.0 kg
--- NOTE | 2020-07-06 03:12 | NUR ---
TASK RN: milan smith for seizure like activity. per ems, no postictal period. pt state she is able to feel touch during seizures activity. pt with a hx of seizures and compliant with medications. 2.5 mg versed given IM by MARCO ANTONIO DACOSTA.
[2020-07-06 03:18] LABS: BASOPHILS # (AUTO) 0.03 x10^3/uL (0-0.1); BASOPHILS % (AUTO) 0 % (0-1); EOSINOPHILS # (AUTO) 0.23 x10^3/uL (0-0.4); EOSINOPHILS % (AUTO) 3 % (1-7); LYMPHOCYTES # (AUTO) 1.64 x10^3/uL (1-3.4); LYMPHOCYTES % (AUTO) 23 % (22-44); MD NO; MEAN CORPUSCULAR HEMOGLOBIN 30.6 pg (27.0-34.8); MEAN CORPUSCULAR HGB CONC 32.6 g/dL (32.4-35.8); MEAN CORPUSCULAR VOLUME 94.1 fL (80-100); MEAN PLATELET VOLUME 8.4 fL (7.4-10.4); MONOCYTES # (AUTO) 0.42 x10^3/uL (0.2-0.8); MONOCYTES % (AUTO) 6 % (2-9); NEUTROPHILS # (AUTO) 4.78 x10^3/uL (1.8-6.8); NEUTROPHILS % (AUTO) 67 % (42-75); PLATELET COUNT 239 x10^3/uL (130-400); RED BLOOD COUNT 3.86 x10^6/uL (3.82-5.3); RED CELL DISTRIBUTION WIDTH 14.4 % (9.6-15.2)
[2020-07-06 03:28] LABS: ALANINE AMINOTRANSFERASE 20 U/L (12-78); ALBUMIN 3.4 g/dL (3.4-5.0); ANION GAP 6 mmol/L (5-15); CALCIUM 8.6 mg/dL (8.5-10.1); CHLORIDE 114 mmol/L (98-107)
[2020-07-06 03:33] LABS: ALKALINE PHOSPHATASE 95 U/L (45-117); BILIRUBIN,TOTAL 0.5 mg/dL (0.2-1.0); CREATININE 0.62 mg/dL (0.55-1.02); TOTAL PROTEIN 6.6 g/dL (6.4-8.2)
[2020-07-06 04:24] VITALS: BP 94/50
[2020-07-06] MEDS ORDERED: DIPHENHYDRAMINE 50 MG/ML, 1ML ONE (05:54)
[2020-07-06] MEDS ORDERED: ACETAMINOPHEN 500 MG TABLET ONE (05:54)
[2020-07-06] MEDS ORDERED: PROCHLORPERAZINE 5 MG/ML, 2ML ONE (05:54)
== END 2020-07-06 05:57 | disposition home or self-care (01) ==
LOC: ED 03:24
DX: G40.919 Epilepsy, unspecified, intractable, without status epilepticus (principal); I10 Essential (primary) hypertension; J45.909 Unspecified asthma, uncomplicated; Z87.891 Personal history of nicotine dependence; Z90.49 Acquired absence of other specified parts of digestive tract
CPT/HCPCS: 36415; 80053; 84703; 85025; 99283

== ENCOUNTER 2020-09-26 13:43 | Emergency (ER) | payer MEDICAID ==
[~2020-09-26] VITALS: Ht 172.7 cm; Wt 48.0 kg
[2020-09-26] MEDS ORDERED: ONDANSETRON 2MG/ML, 2ML ONE ×2 (14:13→15:25)
[2020-09-26] MEDS ORDERED: MORPHINE SULFATE 4 MG/ML, 1ML ONE ×2 (14:13→15:26)
[2020-09-26] MEDS: MORPHINE SULFATE 4 MG/ML, 1ML IVPush PRN ×2 (14:18→15:28)
[2020-09-26] MEDS ORDERED: ONDANSETRON 2MG/ML, 2ML IVPush ONE ×2 (14:30→15:30)
[2020-09-26 14:35] LABS: ALBUMIN 3.8 g/dL (3.4-5.0); ANION GAP 7 mmol/L (5-15); CALCIUM 8.5 mg/dL (8.5-10.1); CHLORIDE 112 mmol/L (98-107); CREATININE 0.65 mg/dL (0.55-1.02)
[2020-09-26 14:36] LABS: BASOPHILS % (AUTO) 1 % (0-1); EOSINOPHILS % (AUTO) 4 % (1-7); LYMPHOCYTES % (AUTO) 31 % (22-44); MEAN CORPUSCULAR HEMOGLOBIN 31.8 pg (27.0-34.8); MEAN CORPUSCULAR HGB CONC 33.4 g/dL (32.4-35.8); MONOCYTES % (AUTO) 8 % (2-9); NEUTROPHILS % (AUTO) 57 % (42-75); PLATELET COUNT 232 x10^3/uL (130-400); RED CELL DISTRIBUTION WIDTH 13.2 % (9.6-15.2)
[2020-09-26 14:38] LABS: MD NO
--- NOTE | 2020-09-26 14:42 | NUR ---
REPORT RECEIVED FROM FRANCY GRACE. PLAN OF CARE DISCUSSED
--- NOTE | 2020-09-26 14:43 | NUR ---
US TECH IN ROOM
[2020-09-26] MEDS ORDERED: SODIUM CHLORIDE FLUSH 10ML SYR IVF ONE (15:00)
--- NOTE | 2020-09-26 15:32 | NUR ---
PATIENT MEDICATED PER EMAR, TOLERATED WELL. VSS, NADN AT THIS TIME.
--- NOTE | 2020-09-26 16:26 | NUR ---
JOSE RESTING ON SHARONDA CENTENO NADN. WAITING FOR OB TO PAGE BACK TO DISCUSS POC OF PATIENT
--- NOTE | 2020-09-26 16:36 | NUR ---
BRIEF PT REPORT RECEIVED. PT CARE TO BE ASSUMED
--- NOTE | 2020-09-26 16:41 | NUR ---
PT LYING ON GURNEY, CRYING (LIGHT TEARS). C/O ABD PAIN: SUPRAPUBIC TO UMBILICUS. STATES SHE RECEIVED PAIN MED EARLIER, "BUT I DON'T THINK IT DID ANYTHING". PAIN 07/28 CURRENTLY. + NAUSEA. LAST ORAL INTAKE: [facility] "A FEW MINUTES AGO", FOOD 0900. INSTRUCTED PT TO BE NPO UNTIL INSTRUCTED OTHERWISE; UNDERSTANDING VERBALIZED. LMP: 08/19/20. AB2.
[2020-09-26] MEDS ORDERED: PRENATAL VITAMIN (16:45)
--- NOTE | 2020-09-26 16:53 | NUR ---
DR SHARP AT ; PENDING CT ORDER.
--- NOTE | 2020-09-26 17:06 | NUR ---
PT ENDORSED TO YISEL JAIME RN. PT AWAITING CT.
--- NOTE | 2020-09-26 17:46 | NUR ---
break RN note: MRI screen completed, pt is negative for all components of screen with exception to piercings. pt has 6 "dermal" piercings that she states cannot be removed, "they have to be taken out surgically." pt states she has previously had an MRI with these piercings in place without any difficulties. product/device technologist notified, product/device technologist also notified pt is . product/device technologist states these are typically safe and safety measures will be put into place to ensure MRI completed without dislodging jewelry. ELÍAS Martel notified. Primary RN Patricia notified. Pt instructed to remove all jewelry and metal on body/clothing that she can prior to MRI. pt verbalizes understanding. pt up to bathroom to void at this time, gait steady. primary FRANCY Gomez resuming care. pt a&o, resps even and unlabored, no complaint at this time. pt updated with POC, agreeable to MRI.
--- NOTE | 2020-09-26 18:20 | NUR ---
RESTING QUIETLY ON GURNEY; AWAITING MRI.
--- NOTE | 2020-09-26 18:38 | NUR ---
PT IN MRI
--- NOTE | 2020-09-26 18:52 | NUR ---
PT REPORT TO FRANCY YOUNG. PT CARE TRANSFERRED.
[2020-09-26] MEDS ORDERED: ACETAMINOPHEN 500 MG TABLET ONE (19:39)
[2020-09-26] MEDS ORDERED: ACETAMINOPHEN 325 MG TABLET PO ONE (20:00)
[2020-09-26 20:06] VITALS: BP 124/66
--- NOTE | 2020-09-26 20:07 | NUR ---
PT AMBULATORY. VSS. PAIN UNDER CONTROL. PT GIVEN DISCHARGE INSTRUCTIONS TO FOLLOW UP WITH OBGYN. PT VERBALIZES UNDERSTANDING.
== END 2020-09-26 20:09 | disposition home or self-care (01) ==
LOC: ED 14:43
DX: O26.891 Other specified pregnancy related conditions, first trimester (principal); R10.31 Right lower quadrant pain; R10.2 Pelvic and perineal pain; I10 Essential (primary) hypertension; J45.909 Unspecified asthma, uncomplicated; G40.909 Epilepsy, unspecified, not intractable, without status epilepticus; Z3A.08 8 weeks gestation of pregnancy
CPT/HCPCS: 36415; 72195; 74181; 76801; 80048; 82040; 84702; 85025; 96374; 96375; 96376; 99285; J2270; J2405

== ENCOUNTER 2020-10-02 15:10 | Emergency (ER) | payer MEDICAID ==
[~2020-10-02] VITALS: Ht 172.7 cm; Wt 8.5 kg
[~2020-10-02 15:10] MED LIST changes: +PRENATAL VITAMIN
[2020-10-02 15:13] VITALS: BP 117/70
[2020-10-02 15:45] LABS: BASOPHILS % (AUTO) 1 % (0-1); EOSINOPHILS % (AUTO) 3 % (1-7); LYMPHOCYTES % (AUTO) 27 % (22-44); MEAN CORPUSCULAR HEMOGLOBIN 32.2 pg (27.0-34.8); MEAN CORPUSCULAR HGB CONC 33.5 g/dL (32.4-35.8); MEAN PLATELET VOLUME 8.8 fL (7.4-10.4); MONOCYTES % (AUTO) 7 % (2-9); NEUTROPHILS % (AUTO) 63 % (42-75); PLATELET COUNT 229 x10^3/uL (130-400); RED BLOOD COUNT 4.46 x10^6/uL (3.82-5.3); RED CELL DISTRIBUTION WIDTH 13.1 % (9.6-15.2)
[2020-10-02 15:46] LABS: MD NO
[2020-10-02 15:47] LABS: ALANINE AMINOTRANSFERASE 34 U/L (12-78); ALBUMIN 4.1 g/dL (3.4-5.0); ANION GAP 7 mmol/L (5-15); CALCIUM 9.1 mg/dL (8.5-10.1); CHLORIDE 113 mmol/L (98-107); CREATININE 0.63 mg/dL (0.55-1.02)
[2020-10-02 16:04] LABS: ALKALINE PHOSPHATASE 95 U/L (45-117); TOTAL PROTEIN 8.1 g/dL (6.4-8.2)
--- NOTE | 2020-10-02 18:18 | NUR ---
NO ANSWER IN LOBBY.
--- NOTE | 2020-10-02 18:27 | NUR ---
no answer in lobby
--- NOTE | 2020-10-02 18:29 | NUR ---
No answer in lobby
== END 2020-10-02 18:31 | disposition left against medical advice (07) ==
LOC: ED 18:15
DX: O46.91 Antepartum hemorrhage, unspecified, first trimester (principal); R10.2 Pelvic and perineal pain; Z3A.01 Less than 8 weeks gestation of pregnancy
CPT/HCPCS: 36415; 76801; 80053; 84702; 85025; 86901; 99284

== ENCOUNTER 2020-10-23 15:32 | Emergency (ER) | payer MEDICAID ==
[~2020-10-23] VITALS: Ht 172.7 cm; Wt 49.5 kg
[2020-10-23 15:41] VITALS: BP 105/68
[2020-10-23 16:20] LABS: MICROSCOPIC AUTO
--- NOTE | 2020-10-23 16:31 | NUR ---
NIL X1
--- NOTE | 2020-10-23 16:46 | NUR ---
NIL X2
--- NOTE | 2020-10-23 16:57 | NUR ---
NILX3, ATTEMPT TO PHONE CALL PATIENT BASED ON LAB RESULTS, NO ANSWER. MESSAGE LEFT TO CALL [facility] ER
== END 2020-10-23 17:04 | disposition left against medical advice (07) ==
LOC: ED 16:58
DX: O26.891 Other specified pregnancy related conditions, first trimester (principal); R11.2 Nausea with vomiting, unspecified; Z3A.10 10 weeks gestation of pregnancy
CPT/HCPCS: 81001; 87086; 87147; 99283

== ENCOUNTER 2020-11-13 21:57 | Emergency (ER) | payer MEDICAID ==
[~2020-11-13] VITALS: Ht 172.7 cm; Wt 48.6 kg
[~2020-11-13 21:57] MED LIST changes: -OXYC-306 PO; +OXYC1TAB17 PO
[2020-11-13 22:10] VITALS: BP 122/46
[2020-11-13] MEDS ORDERED: ACETAMINOPHEN 500 MG TABLET PO ONE (22:30)
[2020-11-13] MEDS ORDERED: ONDANSETRON ODT 4 MG PO ONE (22:30)
[2020-11-13 22:39] LABS: BASOPHILS % (AUTO) 1 % (0-1); EOSINOPHILS % (AUTO) 2 % (1-7); LYMPHOCYTES % (AUTO) 14 % (22-44); MEAN CORPUSCULAR HGB CONC 34.5 g/dL (32.4-35.8); MEAN PLATELET VOLUME 8.4 fL (7.4-10.4); MONOCYTES % (AUTO) 7 % (2-9); NEUTROPHILS % (AUTO) 77 % (42-75); PLATELET COUNT 242 x10^3/uL (130-400); RED BLOOD COUNT 4.18 x10^6/uL (3.82-5.3); RED CELL DISTRIBUTION WIDTH 13.3 % (9.6-15.2)
[2020-11-13 22:41] LABS: MD NO
[2020-11-13 22:47] LABS: ALBUMIN 3.4 g/dL (3.4-5.0); ANION GAP 5 mmol/L (5-15); CALCIUM 8.9 mg/dL (8.5-10.1); CHLORIDE 107 mmol/L (98-107); CREATININE 0.61 mg/dL (0.55-1.02)
--- NOTE | 2020-11-13 23:02 | NUR ---
PATIENT STATED THAT SHE IS 10 WEEKS , HAS OBGYN AND FOLLOW UP. STARTED HAVING RIGHT LOWER QUADRANT PAIN RADIATING TOWARD BACK. RECENT UTI, TOOK ANTIBIOTICS AT HOME. STATED THAT SHE HAS STARTED SPOTTING, HISTORY OF MISCARRIAGES. A1
[2020-11-13] MEDS ORDERED: ACETAMINOPHEN 500 MG TABLET ONE (23:04)
[2020-11-13] MEDS ORDERED: ONDANSETRON ODT 4 MG ONE (23:04)
--- NOTE | 2020-11-13 23:08 | NUR ---
MEDICATED PER MAR, US IN PROGRESS
[2020-11-14 00:31] LABS: MICROSCOPIC INDICATED
[2020-11-14] MEDS ORDERED: CEFDINIR 300 MG CAPSULE ONE (00:58)
[2020-11-14] MEDS ORDERED: CEFDINIR 300 MG CAPSULE PO ONE (01:00)
== END 2020-11-14 01:16 | disposition home or self-care (01) ==
LOC: ED 23:06
DX: O23.01 Infections of kidney in pregnancy, first trimester (principal); O44.41 Low lying placenta NOS or without hemorrhage, first trimester; I10 Essential (primary) hypertension; J45.909 Unspecified asthma, uncomplicated; F17.290 Nicotine dependence, other tobacco product, uncomplicated; Z3A.12 12 weeks gestation of pregnancy; Z88.0 Allergy status to penicillin; Z90.49 Acquired absence of other specified parts of digestive tract; Z88.1 Allergy status to other antibiotic agents
CPT/HCPCS: 36415; 76770; 76801; 80048; 81001; 82040; 84702; 85025; 86901; 87086; 99285; 99406; Q0162; 87147

== ENCOUNTER 2020-12-07 15:41 | Emergency (ER) | payer MEDICAID ==
[~2020-12-07] VITALS: Ht 172.7 cm; Wt 50.2 kg
--- NOTE | 2020-12-07 15:55 | NUR ---
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
--- NOTE | 2020-12-07 16:05 | NUR ---
pt disposition and s and s discussed with dr. kong.
[2020-12-07 17:05] LABS: MICROSCOPIC AUTO
--- NOTE | 2020-12-07 17:09 | NUR ---
Patient is resting comfortably in bed. Vital Signs within normal limits.
[2020-12-07 17:17] LABS: BASOPHILS % (AUTO) 1 % (0-1); EOSINOPHILS % (AUTO) 4 % (1-7); LYMPHOCYTES % (AUTO) 19 % (22-44); MD NO; MEAN CORPUSCULAR HEMOGLOBIN 32.9 pg (27.0-34.8); MEAN CORPUSCULAR HGB CONC 34.5 g/dL (32.4-35.8); MEAN PLATELET VOLUME 8.4 fL (7.4-10.4); MONOCYTES % (AUTO) 7 % (2-9); NEUTROPHILS % (AUTO) 70 % (42-75); PLATELET COUNT 218 x10^3/uL (130-400); RED BLOOD COUNT 3.84 x10^6/uL (3.82-5.3); RED CELL DISTRIBUTION WIDTH 13.6 % (9.6-15.2)
[2020-12-07 17:30] LABS: ALANINE AMINOTRANSFERASE 18 U/L (12-78); ALBUMIN 2.9 g/dL (3.4-5.0); ANION GAP 6 mmol/L (5-15); CALCIUM 9.1 mg/dL (8.5-10.1); CHLORIDE 108 mmol/L (98-107); CREATININE 0.48 mg/dL (0.55-1.02)
[2020-12-07 17:32] LABS: ALKALINE PHOSPHATASE 89 U/L (45-117); BILIRUBIN,TOTAL 0.3 mg/dL (0.2-1.0); TOTAL PROTEIN 6.8 g/dL (6.4-8.2)
--- NOTE | 2020-12-07 17:45 | NUR ---
PT TO MRI
--- NOTE | 2020-12-07 18:26 | NUR ---
PT BACK FROM MRI. MONITOR IN PLACE. NO NEEDS AT THIS TIME.
--- NOTE | 2020-12-07 18:50 | NUR ---
Report received from FRANCY Grossman. This RN to assume care. Awaiting labs.
[2020-12-07 19:59] VITALS: BP 107/58
--- NOTE | 2020-12-07 20:48 | NUR ---
Discharge instructions given. All questions and concerns addressed. Patient ambulatory with a steady gait. Belongings with patient.
== END 2020-12-07 20:56 | disposition home or self-care (01) ==
LOC: ED 16:22
DX: O26.892 Other specified pregnancy related conditions, second trimester (principal); G43.109 Migraine with aura, not intractable, without status migrainosus; R20.2 Paresthesia of skin; H53.8 Other visual disturbances; I10 Essential (primary) hypertension; J45.909 Unspecified asthma, uncomplicated; G40.909 Epilepsy, unspecified, not intractable, without status epilepticus; Z3A.15 15 weeks gestation of pregnancy
CPT/HCPCS: 36415; 70450; 70551; 80053; 80177; 81001; 85025; 87086; 93005; 99285

== ENCOUNTER 2021-04-18 18:02 | Outpatient (CLI) | payer MEDICAID ==
[~2021-04-18] VITALS: Ht 170.2 cm; Wt 58.6 kg
[2021-04-18 18:36] VITALS: BP 106/76
[2021-04-18 18:53] LABS: MICROSCOPIC INDICATED
[2021-04-18 18:54] LABS: BASOPHILS % (AUTO) 1 % (0-1); EOSINOPHILS % (AUTO) 2 % (1-7); LYMPHOCYTES % (AUTO) 11 % (22-44); MEAN CORPUSCULAR HEMOGLOBIN 32.5 pg (27.0-34.8); MEAN CORPUSCULAR HGB CONC 34.3 g/dL (32.4-35.8); MEAN PLATELET VOLUME 9.6 fL (7.4-10.4); MONOCYTES % (AUTO) 11 % (2-9); NEUTROPHILS % (AUTO) 76 % (42-75); PLATELET COUNT 196 x10^3/uL (130-400); RED BLOOD COUNT 3.71 x10^6/uL (3.82-5.3); RED CELL DISTRIBUTION WIDTH 12.7 % (9.6-15.2)
[2021-04-18 18:59] LABS: ALANINE AMINOTRANSFERASE 22 U/L (12-78); ALBUMIN 2.2 g/dL (3.4-5.0); ANION GAP 11 mmol/L (5-15); CALCIUM 8.7 mg/dL (8.5-10.1); CHLORIDE 108 mmol/L (98-107)
[2021-04-18 19:01] LABS: ALKALINE PHOSPHATASE 192 U/L (45-117); BILIRUBIN,TOTAL 1.7 mg/dL (0.2-1.0); TOTAL PROTEIN 6.5 g/dL (6.4-8.2)
[2021-04-18 19:04] LABS: AMPHETAMINE SCREEN, URINE Negative (Negative); BARBITURATE SCREEN, URINE Negative (Negative); BENZODIAZEPINE SCREEN, URINE Negative (Negative); CANNABINOID SCREEN, URINE Negative (Negative); COCAINE SCREEN, URINE Negative (Negative); METHADONE SCREEN, URINE Negative (Negative); OPIATE SCREEN, URINE Negative (Negative); PROTEIN/CREATININE RATIO,URINE 287 (0-200); TOTAL PROTEIN,URINE RANDOM 56 mg/dL (0-12)
[2021-04-18] MEDS ORDERED: NITR100C56 PO (20:39)
== END 2021-04-18 21:32 | disposition home or self-care (01) ==
LOC: LDOP 18:02
PROVIDERS: ATTEND Obstetrics & Gynecology Female Pelvic Medicine and Reconstructive Surgery
DX: O26.893 Other specified pregnancy related conditions, third trimester (principal); R10.9 Unspecified abdominal pain; N13.30 Unspecified hydronephrosis; Z3A.34 34 weeks gestation of pregnancy; Z90.49 Acquired absence of other specified parts of digestive tract
CPT/HCPCS: 36415; 76705; 80053; 80307; 81001; 82570; 84156; 84550; 85025; 87077; 87086; 87186; 99211; G0463